=== PATIENT | female | born 2000 | race Caucasian/White ===

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

== ENCOUNTER 2018-02-15 09:42 | Emergency (ER) | payer BC ==
[2018-02-15] MEDS ORDERED: NS 0.9% 1000 ML* 1,000 ML IV ONE (10:27)
[2018-02-15] MEDS ORDERED: Ketorolac INJ* 30 MG/ML 1 ML VIAL IV ONE (10:27)
--- NOTE | 2018-02-15 10:33 | ED ---
Abdominal Pain/Female - HPI Summary HPI Summary: This patient is a 17 year old F presenting to ED with a chief complaint of lower abdominal pain since this morning. The patient rates the pain 7/10 in severity. Symptoms aggravated by palpation. Symptoms alleviated by nothing. Patient denies N/V/D. She is currently is on her menstrual cycle. PMHx of appendectomy. - History of Current Complaint Chief Complaint: EDAbdPain Stated Complaint: ABD PAIN Time Seen by Provider: 02/15/18 09:52 Hx Obtained From: Patient Onset/Duration: Sudden Onset, Lasting Hours - since this morning, Still Present Timing: Hours Severity Initially: Moderate Severity Currently: Moderate Pain Intensity: 7 Pain Scale Used: 0-10 Numeric Location: Other - lower abdominal pain Radiates: No Aggravating Factor(s): Other: - palpation Alleviating Factor(s): Nothing Associated Signs and Symptoms: Negative: Nausea, Vomiting, Diarrhea Allergies/Adverse Reactions: Allergies Allergy/AdvReac Type Severity Reaction Status Date / Time metoclopramide [From Reglan] Allergy panic Verified 02/15/18 10:01 attack Home Medications: Home Medications Erenumab-Aooe [Aimovig Autoinjector] 70 mg IM MONTHLY 02/15/18 [History Confirmed 02/15/18] Ethinyl Estradiol/Drospirenone [Jinny 28 Tablet] 0.03 mg PO DAILY 02/15/18 [ History Confirmed 02/15/18] FLUoxetine CAP* [Prozac CAP*] 40 mg PO DAILY 02/15/18 [History Confirmed ] Levalbuterol Tartrate [Levalbuterol Tartrate Hfa] 45 mcg INH SEE INSTRUCTIONS PRN 02/15/18 [History Confirmed 02/15/18] PMH/Surg Hx/FS Hx/Imm Hx Respiratory History: Reports: Hx Asthma Sensory History: Denies: Hx Legally Blind, Hx Deafness Opthamlomology History: Denies: Hx Legally Blind Neurological History: Reports: Hx Migraine - Surgical History Surgery Procedure, Year, and Place: APPENDECTOMY- 2017 Infectious Disease History: No Infectious Disease History: Denies: Traveled Outside the [place] in Last 30 Days - Family History Known Family History: Positive: Other - migraines - Social History Alcohol Use: Rare Substance Use Type: Reports: Marijuana Substance Use Comment - Amount & Last Used: occasionally, medical license from [place] Smoking Status (MU): Never Smoked Tobacco Review of Systems Negative: Fever Positive: Abdominal Pain - lower abdominal pain. Negative: Vomiting, Diarrhea, Nausea All Other Systems Reviewed And Are Negative: Yes Physical Exam - Summary Physical Exam Summary: Appearance: Well appearing, no pain distress Skin: warm, dry, reflects adequate perfusion Head/face: normal Eyes: EOMI, RICH ENT: normal Neck: supple, non-tender Respiratory: CTA, breath sounds present Cardiovascular: RRR, pulses symmetrical Abdomen: soft, Tenderness in RLQ and LLQ Bowel: present Musculoskeletal: normal, strength/ROM intact Neuro: normal, sensory motor intact, A&Ox3 Triage Information Reviewed: Yes Vital Signs On Initial Exam: Initial Vitals Temp Pulse Resp BP Pulse Ox 98.7 F 90 16 124/71 100 02/15/18 09:46 02/15/18 09:46 02/15/18 09:46 02/15/18 09:46 02/15/18 09:46 Vital Signs Reviewed: Yes Diagnostics - Vital Signs Vital Signs Temp Pulse Resp BP Pulse Ox 02/15/18 10:12 64 98 02/15/18 10:05 118/67 02/15/18 09:46 98.7 F 90 16 124/71 100 - Laboratory Result Diagrams: 02/15/18 11:06 02/15/18 11:06 Lab Statement: Any lab studies that have been ordered have been reviewed, and results considered in the medical decision making process. - CT CT abd/pel CT Interpretation Completed By: Radiologist - Trace amount of free fluid is noted in the pelvis. No abnormal masses or fluid collections are noted although evaluation is somewhat limited due to lack of oral contrast. Stool is present throughout the colon. ED physician has reviewed this radiology report. Re-Evaluation - Re-Evaluation First Eval Re-Evaluation Time: 13:09 Comment: Discussed results with the patient and plan for discharge. Patient understands and agrees. Abdominal Pain Fem Course/Dx - Course Course Of Treatment: This patient is a 17 year old F presenting to ED with a chief complaint of lower abdominal pain since this morning. In the ED course, the patient was given fluids and toradol. Blood work/UA obtained. CT abd/pel reveals trace amount of free fluid is noted in the pelvis. No abnormal masses or fluid collections are noted although evaluation is somewhat limited due to lack of oral contrast. Stool is present throughout the colon. The patient will be discharged. Patient understands and is agreeable with this plan. - Diagnoses Differential Diagnosis: Positive: Bowel Obstruction, Constipation, Diverticulitis, Ectopic , Renal Colic, Other - dysmenorrhea, unspecified abdominal pain Provider Diagnoses: Dysmenorrhea, Unspecified abdominal pain Discharge - Sign-Out/Discharge Documenting (check all that apply): Patient Departure - discharge - Discharge Plan Condition: Stable Disposition: HOME Patient Education Materials: Dysmenorrhea (ED), Abdominal Pain (ED) Referrals: [facility], [Z.BUSINESS, APPLICATION, OTHER] - 3 Days Additional Instructions: PLEASE RETURN TO THE ED FOR ANY NEW OR WORSENING SYMPTOMS. - Billing Disposition and Condition Condition: STABLE Disposition: Home - Attestation Statements Document Initiated by Charity: Yes Documenting Scribe: Munir Cavazos Provider For Whom hCarity is Documenting (Include Credential): Mayank Beatty MD Scribe Attestation: Munir Rouse, scribed for Mayank Beatty MD on 02/15/18 at 1624. Scribe Documentation Reviewed: Yes Provider Attestation: The documentation as recorded by the Munir potter accurately reflects the service I personally performed and the decisions made by , Mayank Beatty MD
[2018-02-15 11:09] LABS: Urine Appearance Clear; Urine Blood 1+ (Negative); Urine Color Yellow; Urine Ketones Negative (Negative); Urine Protein Negative (Negative); Urine Specific Gravity 1.014 (1.010-1.030); Urine Urobilinogen Negative (Negative)
[2018-02-15 11:18] LABS: Urine Red Blood Cell Trace(0-2/hpf) (Absent); Urine White Blood Cell Trace(0-5/hpf) (Absent)
[2018-02-15 11:19] LABS: ABS Basophils 0.1 10^3/ul (0-0.2); ABS Eosinophils 0.1 10^3/ul (0-0.6); ABS Lymphocytes 1.9 10^3/ul (1.0-4.8); ABS Monocytes 0.4 10^3/ul (0-0.8); ABS Neutrophils 3.1 10^3/ul (1.5-7.7); ABS Nucleated RBC 0 10^3/ul; Eosinophil % 1.7 % (0-6); Hematocrit 37 % (35-47); Hemoglobin 12.1 g/dl (12.0-16.0); Lymphocyte % 34.3 % (25-47); Mean Corpuscular HGB Conc 33 g/dl (31-36); Mean Corpuscular Hemoglobin 28 pg (27-31); Mean Corpuscular Volume 86 fL (80-97); Mean Platelet Volume 7.9 um3 (7.4-10.4); Nucleated Red Blood Cells % 0.2; Platelet Count 286 10^3/ul (150-450); Red Blood Count 4.27 10^6/ul (4.00-5.40); Red Cell Distribution Width 13 % (10.5-15); White Blood Count 5.5 10^3/ul (3.5-10.8)
[2018-02-15 11:29] LABS: INR 0.9 (0.77-1.02)
[2018-02-15] MEDS ORDERED: Ibuprofen TAB* 600 MG PO ONE (11:29)
[2018-02-15 11:36] LABS: EGFR Non-African American 119.5 (>60)
[2018-02-15] MEDS ORDERED: Iohexol 300* (CONTRAST) 10 ML SDV IV ONE (12:09)
--- NOTE | 2018-02-15 12:57 | RAD ---
Indication: Left lower quadrant pain, diverticulitis. Contrast: Administered 79.0 ml of OMNIPAQUE 300 mg/ml CT of the abdomen and pelvis was performed after IV contrast administration. No oral contrast was administered. Coronal and sagittal reconstructed images were obtained. The lung bases demonstrate no pleural fluid, nodules or masses. Heart is of normal size without evidence of pericardial effusion. Liver is normal in size. There are no focal lesions or intrahepatic duct dilatation noted. The gallbladder demonstrates no calcified gallstones. No pericholecystic fluid or wall thickening is identified. The pancreas demonstrates no mass or parenchymal dislocation. The spleen is normal in size. No adrenal masses are noted. The kidneys demonstrate symmetric nephrograms without focal lesions. No retroperitoneal lymphadenopathy is noted. No dilated loops of bowel are noted. CT of the pelvis demonstrates no dilated loops of bowel present. The colon is filled with stool. There is a trace amount of free fluid in the pelvis. The urinary bladder is unremarkable. No hernias are noted. IMPRESSION: Trace amount of free fluid is noted in the pelvis. No abnormal masses or fluid collections are noted although evaluation is somewhat limited due to lack of oral contrast. Stool is present throughout the colon.
[2018-02-15 14:28] VITALS: BP 110/62
== END 2018-02-15 14:28 | disposition home or self-care (01) ==
LOC: ED 09:42
DX: N94.6 Dysmenorrhea, unspecified (principal); R10.32 Left lower quadrant pain; R10.31 Right lower quadrant pain; Z90.89 Acquired absence of other organs; Z88.8 Allergy status to other drugs, medicaments and biological substances
CPT/HCPCS: 36415; 74177; 80053; 81003; 81015; 83690; 85025; 85610; 85730; 87086; 96360; 96361; 99283; A9270-GY; J1885; Q9967